=== PATIENT | male | born 1945 | race Caucasian/White ===

== ENCOUNTER 2018-12-15 22:56 | Emergency (ER) | payer OTHER ==
[~2018-12-15] VITALS: Ht 180.3 cm; Wt 85.3 kg
[2018-12-15 23:00] VITALS: BP 132/87
== END 2018-12-16 01:15 | disposition home or self-care (01) ==
LOC: ED 22:56
DX: R33.9 Retention of urine, unspecified (principal); N39.0 Urinary tract infection, site not specified